=== PATIENT | male | born 1960 | race Caucasian/White ===

== ENCOUNTER → 2018-06-27 | Outpatient (CLI) | payer OTHER ==
[~2018-06-27] MED LIST: COUMADIN5 MG PO; FLECAINIDE ACE100 MG PO; KLOR-CON M2020 MEQ PO; LISINOPRIL-HCT1 EAC3 PO; LO-DOSE ASPIRIN81 M1 PO; METOPROLOL TAR100 MG PO; NIFEDIPINE ER30 MG PO; NIFEDIPINE ER90 MG PO; NORVASC10 MG PO; WARFARIN SODIUM6 MG PO
[2018-06-27 08:52] LABS: PTT 28.6 SEC (25-37)
[2018-06-27 09:11] LABS: INTER. NORMALIZED RATIO 1.3
== END | disposition home or self-care (01) ==
LOC: OPR 08:10 → EDSTATUS 09:00 → OPR 09:00
PROVIDERS: Internal Medicine Pulmonary Disease
PROC: 0BBF3ZX Excision of Right Lower Lung Lobe, Percutaneous Approach, Diagnostic (ICD-10-PCS; principal; 2018-06-27)
DX: R91.1 Solitary pulmonary nodule (principal); I48.91 Unspecified atrial fibrillation; I10 Essential (primary) hypertension; Z79.01 Long term (current) use of anticoagulants; Z79.82 Long term (current) use of aspirin
CPT/HCPCS: 71045; 77012; 85610; 85730; 88305; 88312; 88341 TC; 88342 TC; J3010